=== PATIENT | male | born 1975 | race Caucasian/White ===

== ENCOUNTER 2018-08-31 13:33 | Emergency (ER) | payer OTHER ==
[~2018-08-31] VITALS: Ht 182.8 cm; Wt 102.1 kg
== END 2018-08-31 13:49 | disposition home or self-care (01) ==
LOC: ED 13:33
DX: I10 Essential (primary) hypertension (principal); Z23 Encounter for immunization

== ENCOUNTER 2018-10-06 18:35 | Emergency (ER) | payer OTHER ==
[~2018-10-06] VITALS: Ht 185.4 cm; Wt 104.3 kg
--- NOTE | ~2018-10-06 | EKG ---
[place], [place] ELECTROCARDIOGRAM REPORT NAME: TEODORO LOVETT UNIT #: [id number] ROOM: DOCTOR: EPIPHANY DRAFT REPORT BIRTHDATE: [birth year] [facility] Test Date: 2018-10-06 Test Time: 18:45:02 Pat Name: TEODORO LOVETT Department: Room: Gender: Afterschool: RESP : 1975 Requested By: SONYA DIXON DNP Order Number: [id number] Reading MD: Zeus Martinez MD Measurements Intervals [place] Rate: 90 P: 35 VA: 178 QRS: 12 QRSD: 87 T: 11 QT: 352 QTc: 431 Interpretive Statements Sinus rhythm Electronically Signed On 10-07-2018 13:07:52 PDT by Zeus Martinez MD CM:EKGRPT:ELECTROCARDIOGRAM REPORT [id number] SONYA DIXON DNP EPIPHANY DRAFT REPORT SONYA DIXON DNP
[2018-10-06 19:02] LABS: BASO % 0.3 % (0.0-1.0); EOS # 0.2 10*3/uL (0.0-0.4); EOS % 3.1 % (1.0-4.0); HEMATOCRIT 42.3 % (42.0-52.0); HEMOGLOBIN 14.3 g/dl (14.0-18.0); LYMPH # 1.8 10*3/uL (1.3-4.4); LYMPH % 26.7 % (27.0-41.0); MEAN CELL VOLUME 91.4 fl (80.0-94.0); MEAN CORPUSCULAR HGB 30.9 pg (27.0-31.0); MEAN CORPUSCULAR HGB CONC 33.8 g/dl (33.0-37.0); MEAN PLATELET VOLUME 8.9 fl (9.6-12.3); MONO # 0.4 10*3/uL (0.1-1.0); MONO % 5.9 % (3.0-9.0); NEUT # 4.3 10*3/uL (2.3-7.9); NEUT % 63.7 % (47.0-73.0); PLATELET COUNT AUTOMATED 239 10*3/uL (130-400); RED BLOOD COUNT 4.63 10*6/uL (4.50-5.90); RED CELL DISTRI WIDTH 13.1 % (0-14.5); WHITE BLOOD COUNT 6.7 10*3/uL (4.8-10.8)
[2018-10-06 19:19] LABS: ACT PARTIAL THROMBO TIME 25.1 SECONDS (20.0-32.1); ALBUMIN 3.4 gm/dl (3.1-4.5); ALKALINE PHOSPHATASE 111 U/L (45-117); BUN 12 mg/dl (7-24); CHLORIDE 106 mmol/L (98-107); CREATININE 1.12 mg/dL (0.70-1.30); INTERNATIONAL NORM RATIO 0.9 (2.0-3.5); LIPASE 159 U/L (73-393); SGOT/AST 14 IU/L (3-35); SGPT/ALT 20 U/L (12-78); SODIUM 138 mmol/L (136-145); TOTAL PROTEIN 8.3 gm/dL (6.4-8.2)
[2018-10-06 19:22] LABS: TROPONIN I < 0.015 ng/ml (<0.045)
[2018-10-06] MEDS ORDERED: NORVASC5 MG PO (19:29)
== END 2018-10-06 19:33 | disposition home or self-care (01) ==
LOC: ED 18:35
PROVIDERS: Nurse Practitioner Family
DX: I10 Essential (primary) hypertension (principal); R42 Dizziness and giddiness; F17.200 Nicotine dependence, unspecified, uncomplicated